=== PATIENT | male | born 2000 | race Two or more races ===

== ENCOUNTER 2021-01-26 02:27 | Emergency (ER) | payer MEDICAID ==
[~2021-01-26] VITALS: Ht 170.2 cm; Wt 77.1 kg
[2021-01-26] MEDS ORDERED: SODIUM CHLORIDE 0.9% 1,000 ML IVB ONE (03:45)
[2021-01-26 04:17] LABS: Basophils # (auto) 0 10 ^3/uL (0-0.2); Basophils % (auto) 0.2 % (0.0-2.0); Eosinophils # (auto) 0 10 ^3/uL (0-0.8); Eosinophils % (auto) 0.2 % (0.0-7.0); Hematocrit 44.2 % (41.0-53.0); Hemoglobin 15.1 g/dL (13.5-17.5); Lymphocytes # (auto) 1.1 10 ^3/uL (0.4-5.4); Lymphocytes % (auto) 7.6 % (10.0-50.0); Mean Corpuscular Hemoglobin 30.6 pg (28.0-32.0); Mean Corpuscular Hgb Conc. 34.2 g/dL (32.0-36.0); Mean Corpuscular Volume 89.5 fL (80.0-100.0); Monocytes # (auto) 0.9 10 ^3/uL (0-1.3); Monocytes % (auto) 6.5 % (0.0-12.0); Neutrophils # (auto) 12.2 10 ^3/uL (1.6-8.6); Neutrophils % (auto) 85.5 % (37.0-80.0); Red Blood Cells 4.94 10^6/uL (4.5-5.90); Red Cell Distribution Width 12.2 % (11.8-14.3); White Blood Cell 14.2 10^3/uL (4.4-10.8)
[2021-01-26 04:38] LABS: Alanine Aminotransferase 35 U/L (16-61); Albumin 4.7 g/dL (3.4-5.0); Anion Gap 8 (5-15); Aspartate Aminotransferase 14 U/L (15-37); BUN/Creatinine Ratio 14.7; Blood Alcohol < 3.0 mg/dL (0-5); Blood Urea Nitrogen 10 mg/dL (7-18); Calcium 9.4 mg/dL (8.5-10.1); Carbon Dioxide 25 mmol/L (21-32); Chloride 108 mmol/L (98-107); GFR African American 188 mL/min; GFR Non-African American 155 mL/min; Glucose 101 mg/dL (74-106); Magnesium 2.4 mg/dL (1.6-2.6); Potassium 3.6 mmol/L (3.5-5.1); Sodium 141 mmol/L (136-145)
[2021-01-26 04:41] LABS: Alkaline Phosphatase 62 U/L (45-117); Bilirubin, Total 0.5 mg/dL (0.2-1.0); Total Protein 7.8 g/dL (6.4-8.2)
[2021-01-26 07:06] VITALS: BP 110/52
== END 2021-01-26 07:18 | disposition home or self-care (01) ==
LOC: ER 02:27 → EDBD 02:27 → ER 07:18
DX: R56.9 Unspecified convulsions (principal)
CPT/HCPCS: 36415; 70450; 71045; 80053; 80320; 83735; 85025; 93005; 96360; 99285; J7030